=== PATIENT | male | born 1980 ===

== ENCOUNTER 2019-08-14 07:27 | Outpatient (CLI) | payer BC, SELFPAY ==
--- NOTE | ~2019-08-14 | US_ITS ---
EXAMINATION: US right upper quadrant EXAM DATE: 08/14/2019 08:07 INDICATION: Right flank pain, elevated liver enzymes. Cholecystectomy. TECHNIQUE: Multiple grayscale and Doppler images of the abdomen right upper quadrant were obtained (b y a technologist who performed the scan) and subsequently reviewed. Comparison is made to prior exami nation from 12/25/2012. FINDINGS: The pancreas is poorly visualized. The liver has normal echogenicity and contour. There are no foca l liver lesions identified. There is no evidence of intrahepatic biliary duct dilation. Portal eduardo ous flow was seen in the hepatopedal, normal direction and has normal Doppler waveform. No right-michaela ed hydronephrosis. Common bile duct measures 4 mm, which is normal. The gallbladder fossa is unremarkable. IMPRESSION: 1. Unremarkable abdominal ultrasound exam. Reviewed, dictated and finalized at location B. [facility] SPECIALIST
== END 2019-08-14 07:28 | disposition home or self-care (01) ==
PROVIDERS: PCP Family Medicine; Visit Provider Physician Assistant
DX: R10.9 Unspecified abdominal pain (principal); R74.0 Nonspecific elevation of levels of transaminase and lactic acid dehydrogenase [LDH]
CPT/HCPCS: 76705

== ENCOUNTER 2020-02-19 08:57 | Outpatient (CLI) | payer BC, SELFPAY ==
--- NOTE | 2020-02-19 11:30 | NEURO_ITS ---
Patient Number: [id number] Impression: # Complains of nocturnal paresthesia and pain. Known juvenile diabetic. # Bilateral Carpal Tunnel Syndrome, right more then left. # No ulnar neuropathy. # Needle/EMG exam of bilateral APB is mildly neurogenic. Nerve Conduction Studies Anti Sensory Summary Table Stim Site NR Peak (ms) P-T Amp (?V) Site1 Site2 Delta-P (ms) Dist (cm) Robert (m/s) Left Median Anti Sensory (2-3nd Digit) Wrist 4.9 23.5 Wrist 2-3nd Digit 4.9 14.0 29 Wrist 5.0 13.4 Wrist 2-3nd Digit 4.9 14.0 29 Right Median Anti Sensory (2-3nd Digit) Wrist 6.6 24.6 Wrist 2-3nd Digit 6.6 14.0 21 Wrist 7.3 18.7 Wrist 2-3nd Digit 6.6 14.0 21 Left Radial Anti Sensory (Base 1st Digit) Wrist 2.3 17.2 Wrist Base 1st Digit 2.3 0.0 Right Radial Anti Sensory (Base 1st Digit) Wrist 2.5 7.5 Wrist Base 1st Digit 2.5 0.0 Left Ulnar Anti Sensory (5th Digit) Wrist 2.9 12.3 Wrist 5th Digit 2.9 14.0 48 Right Ulnar Anti Sensory (5th Digit) Wrist 2.9 30.5 Wrist 5th Digit 2.9 14.0 48 Motor Summary Table Stim Site NR Onset (ms) O-P Amp (mV) Site1 Site2 Delta-0 (ms) Dist (cm) Robert (m/s) Left Median Motor (Abd Poll Brev) Wrist 5.2 3.2 Elbow Wrist 5.7 30.0 53 Elbow 10.9 3.4 Right Median Motor (Abd Poll Brev) Wrist 7.0 1.5 Elbow Wrist 5.1 29.0 57 Elbow 12.1 2.0 Left Ulnar Motor (Abd Dig Minimi) Wrist 3.3 4.7 Right Ulnar Motor (Abd Dig Minimi) Wrist 3.4 5.6 A Elbow Wrist 6.0 33.0 55 A Elbow 9.4 4.5 F Wave Studies NR F-Lat (ms) L-R F-Lat (ms) Left Median (Mrkrs) (Abd Poll Brev) 33.63 1.64 Right Median (Mrkrs) (Abd Poll Brev) 35.26 1.64 Left Ulnar (Mrkrs) (Abd Dig Min) 32.87 0.94 Right Ulnar (Mrkrs) (Abd Dig Min) 33.80 0.94 EMG Side Muscle Nerve Root Ins Act Fibs Amp Dur Recrt Comment Right 1stDorInt Ulnar C8-T1 Nml Nml Nml Nml Nml Right Ext Indicis Radial (Post Int) C7-8 Nml Nml Nml Nml Nml Right Ext Digitorum Radial (Post Int) C7-8 Nml Nml Nml Nml Nml Right BrachioRad Radial C5-6 Nml Nml Nml Nml Nml Right PronatorTeres Median C6-7 Nml Nml Nml Nml Nml Right Abd Poll Brev Median C8-T1 Nml Nml Incr >12ms Reduced Left 1stDorInt Ulnar C8-T1 Nml Nml Nml Nml Nml Left Ext Indicis Radial (Post Int) C7-8 Nml Nml Nml Nml Nml Left Ext Digitorum Radial (Post Int) C7-8 Nml Nml Nml Nml Nml Left BrachioRad Radial C5-6 Nml Nml Nml Nml Nml Left PronatorTeres Median C6-7 Nml Nml Nml Nml Nml Left Abd Poll Brev Median C8-T1 Nml Nml Incr >12ms Reduced Right ABD Dig Min Ulnar C8-T1 Nml Nml Nml Nml Nml Left ABD Dig Min Ulnar C8-T1 Nml Nml Nml Nml Nml MTDD
== END 2020-02-19 08:58 | disposition home or self-care (01) ==
PROVIDERS: PCP Family Medicine; Visit Provider Family Medicine
DX: G56.03 Carpal tunnel syndrome, bilateral upper limbs (principal)
CPT/HCPCS: 95886; 95911

== ENCOUNTER → 2020-04-21 07:59 | Outpatient (CLI) | payer BC, SELFPAY ==
--- NOTE | ~2020-04-21 | XR_ITS ---
XR_[id number]_CR DATE: 04/21/2020 08:40 INDICATION: Cervical radiculopathy TECHNIQUE: AP, lateral, swimmer views COMPARISON: None FINDINGS: Incidentally noted are bilateral cervical ribs. There is straightening of the cervical spine. No fracture or dislocation or locked facet or prevertebral soft tissue swelling. There is mild anterior spurring of the anteroinferior margin of C5 consistent with minimal degenerati ve disc disease at C5-6. The cervical interspaces are well preserved. IMPRESSION: Straightening and minimal degenerative change Bilateral cervical ribs Reviewed, dictated and finalized at [facility]. Reviewed, dictated and finalized at location A.
== END ==
PROVIDERS: PCP Family Medicine; Visit Provider Physician Assistant
DX: M54.12 Radiculopathy, cervical region (principal)
CPT/HCPCS: 72040

== ENCOUNTER 2022-01-26 10:08 | Outpatient (CLI) | payer BC, SELFPAY ==
[2022-01-26 10:49] LABS: Uric Acid 4.4 mg/dL (3.5-8.5)
== END 2022-01-26 10:09 | disposition home or self-care (01) ==
LOC: ANHLAB 10:10
PROVIDERS: PCP Family Medicine; Visit Provider Family Medicine
DX: M25.571 Pain in right ankle and joints of right foot (principal)
CPT/HCPCS: 36415; 84550

== ENCOUNTER → 2022-01-26 10:33 | Outpatient (CLI) | payer BC, SELFPAY ==
--- NOTE | ~2022-01-26 | XR_ITS ---
XR ankle RT 2V DATE: 01/26/2022 10:49 INDICATION: Right ankle and foot pain TECHNIQUE: AP and lateral views COMPARISON: None FINDINGS: There is generalized soft tissue swelling. No fracture or dislocation of the ankle or disru ption of the ankle mortise. No periosteal reaction or bone destruction. Anterior and posterior tibial artery calcifications. IMPRESSION: No fracture or dislocation of ankle Reviewed, dictated and finalized at location A.
== END ==
PROVIDERS: PCP Family Medicine; Visit Provider Family Medicine
DX: M25.571 Pain in right ankle and joints of right foot (principal)
CPT/HCPCS: 73600

== ENCOUNTER → 2022-02-17 07:17 | Outpatient (CLI) | payer BC, SELFPAY ==
--- NOTE | ~2022-02-17 | XR_ITS ---
XR lumbar spine 2-3V DATE: 02/17/2022 07:38 INDICATION: Low back pain TECHNIQUE: AP, lateral and coned lateral lumbosacral views COMPARISON: None FINDINGS: Normal alignment of the lumbar spine. No fracture or bone destruction or spondylolisthesis. The included lower thoracic and lumbar pedicles are intact. There is minimal degenerative spurring of the superolateral vertebral margin of the left L4 vertebral body. Lumbar and lumbosacral interspaces appear well preserved. The sacroiliac joints are intact. Status post cholecystectomy. IMPRESSION: Minimal degenerative change Reviewed, dictated and finalized at location B. IMPRESSION: Minimal degenerative change
--- NOTE | ~2022-02-17 | XR_ITS ---
XR foot RT min 3V DATE: 02/17/2022 07:38 INDICATION: Right foot pain TECHNIQUE: 4 views COMPARISON: None FINDINGS: Anterior and posterior tibial artery, metatarsal and digital artery calcifications, suggest ing diabetes. No fracture or dislocation, periosteal reaction or bone destruction. IMPRESSION: Arterial calcifications including metatarsal and digital arteries, suggesting diabetes No significant bony abnormality Reviewed, dictated and finalized at location B.
== END ==
PROVIDERS: PCP Family Medicine; Visit Provider Nurse Practitioner Family
DX: M79.671 Pain in right foot (principal)
CPT/HCPCS: 72100; 73630